=== PATIENT | male | born 1995 | race Caucasian/White ===

== ENCOUNTER → 2019-10-04 17:03 | Outpatient (BNVA) | payer SELFPAY | PROVIDERS: Family Provider Family Medicine; PCP Nurse Practitioner Family; Visit Provider Nurse Practitioner Family | DX: F32.9 Major depressive disorder, single episode, unspecified (principal); F41.9 Anxiety disorder, unspecified; R53.83 Other fatigue; A59.03 Trichomonal cystitis and urethritis; J02.9 Acute pharyngitis, unspecified; R36.9 Urethral discharge, unspecified; Z79.899 Other long term (current) drug therapy | CPT/HCPCS: 80053; 81001; 81003; 83036; 84439; 84443; 84481; 85025; 87491; 87591 ==

== ENCOUNTER 2020-01-05 17:27 | Outpatient (CLI) | payer SELFPAY ==
--- NOTE | 2020-01-05 16:00 | CTR_ITS ---
PROCEDURE INFORMATION: Exam: CT Maxillofacial Without Contrast Exam date and time: 01/05/2020 5:59 PM Age: 24 years old Clinical indication: Injury or trauma; Initial encounter; Blunt trauma (contusions or hematomas); Cheek bone and maxilla; Right; Patient HX: R maxilla injury while boxing 2 weeks ago; Additional info: Facial trauma TECHNIQUE: Imaging protocol: Computed tomography images of the face without contrast. Radiation optimization: All CT scans at this facility use at least one of these dose optimization techniques: automated exposure control; mA and/or kV adjustment per patient size (includes targeted exams where dose is matched to clinical indication); or iterative reconstruction. COMPARISON: No relevant prior studies available. RADIATION DOSE METRICS: Total DLP (mGy-cm): 763.49 FINDINGS: Orbits: Orbits are normal. Globes are unremarkable. No evidence of intraorbital hemorrhage or intraorbital emphysema. Bones/joints: There is a fracture of the anterior wall of the left maxillary sinus which is buckled with 2 mm of depression. There is a fracture of the lateral wall of the right maxillary sinus. There is a fragment of the lateral wall displaced 4 mm into the maxillary sinus. There is a nondisplaced fracture of the right orbital floor seen is buckling of the floor at the infraorbital groove. There is a transverse nondisplaced fracture of the lateral wall of the right orbit and anterior zygomatic arch best seen on coronal series 601 images 50 to 55. No displacement. No fracture of the left orbit or zygomatic arch. No fracture of the nasal is. No fracture or dislocation of the mandible. Sinuses: There is mild mucosal thickening in the right maxillary sinus. Soft tissues: Unremarkable. CT/CT facial bones wo con* [id number] IMPRESSION: Right tripod fracture. This includes fractures of the anterior lateral nazario of right maxillary sinus with depression. There are nondisplaced fractures of the right orbital floor, right lateral wall of the orbit and right zygomatic arch. Radiation Dose CTDIVOL = (mGy): DLP = 763.49 (mGy-cm)
== END 2020-01-05 17:28 | disposition home or self-care (01) ==
LOC: RAD 17:30
PROVIDERS: PCP Nurse Practitioner Family; Visit Provider Nurse Practitioner Family
DX: S02.81XA Fracture of other specified skull and facial bones, right side, initial encounter for closed fracture (principal); S02.31XA Fracture of orbital floor, right side, initial encounter for closed fracture; X58.XXXA Exposure to other specified factors, initial encounter
CPT/HCPCS: 70486

== ENCOUNTER → 2023-01-27 11:15 | Outpatient (BNVA) | payer SELFPAY | PROVIDERS: PCP Nurse Practitioner Family; Visit Provider Nurse Practitioner Family | DX: Z20.822 Contact with and (suspected) exposure to COVID-19 (principal); U07.1 COVID-19 | CPT/HCPCS: 87426 ==

== ENCOUNTER → 2025-01-18 10:14 | Outpatient (BNVA) | payer OTHER, SELFPAY | PROVIDERS: PCP Nurse Practitioner Family; Visit Provider Registered Nurse | DX: Z02.1 Encounter for pre-employment examination (principal) | CPT/HCPCS: 80307 ==